=== PATIENT | female | born 1980 ===

== ENCOUNTER 2017-11-16 15:55 | Emergency (ER) | payer BC ==
[2017-11-16 16:23] VITALS: RESP 16; O2SAT 98
[2017-11-16] MEDS ORDERED: Albuterol-Ipratrop 3 mg / 0.5 (3 ml) UD INH STA (17:14)
--- NOTE | 2017-11-16 17:21 | ED PDOC ---
HPI: CCC, URI, Sore Throat Time Seen by Provider: 11/16/17 17:14 Chief Complaint (Nursing): Cough, Cold, Congestion Chief Complaint (Provider): Congestion, Cough History Per: Patient History/Exam Limitations: no limitations Onset/Duration Of Symptoms: Days (x 4) Current Symptoms Are (Timing): Still Present Additional Complaint(s): Mona is a 37 y/o female who presents to the ED complaining of 4 days of nasal congestion and cough. Patient states yesterday it was worse with fever and sweating, so she is concerned about bronchitis. She denies history of asthma or smoking. PMD: Alfred Starks Past Medical History Reviewed: Historical Data, Nursing Documentation, Vital Signs Vital Signs: Last Vital Signs Temp 98.4 F 11/16/17 18:12 Pulse 80 11/16/17 18:12 Resp 16 11/16/17 16:18 BP 122/78 11/16/17 18:12 Pulse Ox 98 11/16/17 18:12 - Medical History PMH: Denies: Asthma - Family History Family History: States: CAD (father of ID in late 50's) - Social History Current smoker - smoking cessation education provided: No Ex-Smoker (has not smoked in the last 12 months): No - Home Medications Home Medications: Ambulatory Orders Medication Instructions Recorded Benzonatate [Tessalon Perles] 100 mg PO TID PRN #15 sgl 05/15/15 Moxifloxacin Hydrochloride [Avelox] 400 mg PO DAILY #6 tab 05/15/15 Albuterol 0.083% [Albuterol 0.083% 2.5 mg IH Q8 PRN #100 neb 11/16/17 Inhal Didi (2.5 mg/3 ml) UD] Azithromycin [Zithromax] 250 mg PO DAILY #4 tab 11/16/17 Mask, Face [Nebulizer Aerosol Mask 1 dev XX PRN PRN #1 dev 11/16/17 Adult] Nebulizer [Aeroeclipse II] 1 each MC Q8 PRN #1 each 11/16/17 Promethazine/Codeine 5 ml PO Q12 PRN #100 ml 11/16/17 [Codeine/Promethazine 10 MG/5 Ml-6.25 MG/5 Ml] - Allergies Allergies/Adverse Reactions: Allergies Allergy/AdvReac Type Severity Reaction Status Date / Time No Known Allergies Allergy Verified 11/16/17 16:18 Review of Systems ROS Statement: Except As Marked, All Systems Reviewed And Found Negative Constitutional: Positive for: Fever, Sweats ENT: Positive for: Nose Congestion Respiratory: Positive for: Cough Physical Exam - Reviewed Nursing Documentation Reviewed: Yes Vital Signs Reviewed: Yes - Physical Exam Appears: Positive for: Well, Non-toxic, No Acute Distress Cardiovascular/Chest: Positive for: Regular Rate, Rhythm Respiratory: Positive for: Rales (left-sided). Negative for: Respiratory Distress Extremity: Positive for: Normal ROM Neurologic/Psych: Positive for: Alert, Oriented - ECG O2 Sat by Pulse Oximetry: 98 (RA) Pulse Ox Interpretation: Normal Medical Decision Making Medical Decision Making: Time: 17:14 Initial Impression: Rule out pneumonia Initial Plan: --Duoneb --Zithromax --Chest XR Time: 17:50 FINDINGS: LUNGS: Poor inspiration with low lung volumes, crowded bronchovascular markings and mild bibasilar atelectasis. PLEURA: No significant pleural effusion identified. No pneumothorax apparent. CARDIOVASCULAR: Normal. OSSEOUS STRUCTURES: No significant abnormalities. VISUALIZED UPPER ABDOMEN: Normal. OTHER FINDINGS: None. IMPRESSION: Poor inspiration with low lung volumes, crowded bronchovascular markings and mild bibasilar atelectasis. Scribe Attestation: Documented by Otto Lyles, acting as a scribe for Marycruz Peck PA-C Provider Scribe Attestation: All medical record entries made by the Scribe were at my direction and personally dictated by me. I have reviewed the chart and agree that the record accurately reflects my personal performance of the history, physical exam, medical decision making, and the department course for this patient. I have also personally directed, reviewed, and agree with the discharge instructions and disposition. Disposition - Clinical Impression Clinical Impression: Community acquired pneumonia - Patient ED Disposition Is Patient to be Admitted: No - Disposition Referrals: Alfred Starks MD [Primary Care Provider] - Disposition: Routine/Home Disposition Time: 18:12 Condition: FAIR Prescriptions: Albuterol 0.083% [Albuterol 0.083% Inhal Didi (2.5 mg/3 ml) UD] 2.5 mg IH Q8 PRN #100 neb PRN Reason: Cough Azithromycin [Zithromax] 250 mg PO DAILY #4 tab Mask, Face [Nebulizer Aerosol Mask Adult] 1 dev XX PRN PRN #1 dev PRN Reason: Shortness Of Breath Nebulizer [Aeroeclipse II] 1 each MC Q8 PRN #1 each PRN Reason: Shortness Of Breath Promethazine/Codeine [Codeine/Promethazine 10 MG/5 Ml-6.25 MG/5 Ml] 5 ml PO Q12 PRN #100 ml PRN Reason: Cough Instructions: Community Acquired Pneumonia (ED) Forms: [facility] ([place]ian), [facility] ED School/Work Excuse
[2017-11-16] MEDS ORDERED: Albuterol-Ipratrop 3 mg / 0.5 (3 ml) UD ONE (17:37)
--- NOTE | 2017-11-16 17:51 | RAD ---
HISTORY: Cough. COMPARISON: Comparison chest dated 05/15/2015 TECHNIQUE: Chest PA and lateral FINDINGS: LUNGS: Poor inspiration with low lung volumes, crowded bronchovascular markings and mild bibasilar atelectasis. PLEURA: No significant pleural effusion identified. No pneumothorax apparent. CARDIOVASCULAR: Normal. OSSEOUS STRUCTURES: No significant abnormalities. VISUALIZED UPPER ABDOMEN: Normal. OTHER FINDINGS: None. IMPRESSION: Poor inspiration with low lung volumes, crowded bronchovascular markings and mild bibasilar atelectasis.
[2017-11-16 18:13] VITALS: BP 122/78; PULSE 80; TEMP 98.4
== END 2017-11-16 18:13 | disposition home or self-care (01) ==
LOC: H.ER 15:55
DX: J18.9 Pneumonia, unspecified organism (principal)